=== PATIENT | male | born 1955 | race Caucasian/White ===

== ENCOUNTER 2020-01-24 19:44 | Emergency (ER) | payer BC ==
[~2020-01-24] VITALS: Ht 175.3 cm; Wt 108.9 kg
[2020-01-24] MEDS ORDERED: KEFLEX500 M1 PO (20:46)
[2020-01-24 21:11] VITALS: BP 142/70
== END 2020-01-24 21:13 | disposition home or self-care (01) ==
LOC: M.ERS 19:44
DX: S61.211A Laceration without foreign body of left index finger without damage to nail, initial encounter (principal); W26.8XXA Contact with other sharp object(s), not elsewhere classified, initial encounter; Y93.89 Activity, other specified; Y92.89 Other specified places as the place of occurrence of the external cause; Y99.8 Other external cause status

== ENCOUNTER 2021-01-06 12:26 | Emergency (ER) | payer BC, MEDICARE ==
[~2021-01-06] VITALS: Ht 175.3 cm; Wt 90.7 kg
[~2021-01-06 12:26] MED LIST: KEFLEX500 M1 PO
[2021-01-06] MEDS ORDERED: CEPHALEXIN500 MG PO (13:37)
[2021-01-06 13:50] VITALS: BP 170/75
== END 2021-01-06 13:50 | disposition home or self-care (01) ==
LOC: M.ERS 12:26
DX: S61.412A Laceration without foreign body of left hand, initial encounter (principal); W45.8XXA Other foreign body or object entering through skin, initial encounter; Y93.89 Activity, other specified; Y92.89 Other specified places as the place of occurrence of the external cause; Y99.8 Other external cause status